=== PATIENT | female | born 1995 | race Caucasian/White ===

== ENCOUNTER 2016-12-23 12:00 | Emergency (ER) | payer SELFPAY ==
[~2016-12-23] VITALS: Ht 170.2 cm; Wt 91.0 kg
[2016-12-23 12:02] VITALS: BP 123/77; PULSE 82; RESP 16; TEMP 98; O2SAT 98
--- NOTE | 2016-12-23 12:31 | PD ---
HPI . chronic back pain/leg pain Chief Complaint: Back/ Neck Pain or Injury Time Seen by Provider: 12:31 Travel History International Travel<30 days: No Contact w/Intl Traveler<30days: No Traveled to known affect area: No History of Present Illness HPI 21-year-old female with history of bulging disc here with complaints of chronic back pain and left leg pain. Patient says she experience some numbness in her left leg started to come to the emergency department for further evaluation. 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 She thinks it may be contributing to her problems. She denies any bowel or bladder dysfunction. She denies any saddle anesthesia. She does not have any recent injury or trauma. She rates the pain as severe in the left lower extremity without any radiation. She has not seen her primary care provider for this issue. She is here in hopes of further workup. [facility] Past Medical History Medical History: Denies Significant Hx Tetanus Vaccination: < 5 Years Influenza Vaccination: No ?: Not LMP: 12/15/2016 : 0 Past Surgical History Other Surgery: Yes (tumor removed in chest at ) Social History Alcohol Use: Yes (WEEKLY) Tobacco Use: No Substance Use: No Allergies-Medications (Allergen,Severity, Reaction): Coded Allergies: No Known Allergies (Verified , 12/23/16) Reported Meds & Prescriptions Reported Meds & Active Scripts Active Prednisone 50 Mg Tab 50 Mg PO DAILY Review of Systems General / Constitutional: No: Fever Eyes: No: Visual changes HENT: No: Headaches Cardiovascular: No: Chest Pain or Discomfort Respiratory: No: Shortness of Breath Gastrointestinal: No: Abdominal Pain Genitourinary: No: Dysuria Musculoskeletal: Positive: Pain (left leg) Skin: No Rash Neurologic: No: Weakness Psychiatric: No: Depression Endocrine: No: Polydipsia Hematologic/Lymphatic: No: Easy Bruising Physical Exam Narrative GENERAL: AAO x 3, no acute distress, Well-nourished, well-developed patient. SKIN: Warm and dry. No visible rashes or bruising. HEAD: Normocephalic and atraumatic. EYES: No scleral icterus. No injection or drainage. EOM intact, PERRLA ENT: No nasal drainage noted. Mucous membranes pink. Airway patent. NECK: Supple, trachea midline. No JVD. CARDIOVASCULAR: Regular rate and rhythm without murmurs, gallops, or rubs. RESPIRATORY: Breath sounds equal bilaterally. No accessory muscle use. No rhonchi or rales. GASTROINTESTINAL: Abdomen soft, non-tender, nondistended. EXTREMITIES: No cyanosis or edema. mild positive straight leg raise on the left lower extremity.all joints full range of motion. Patient is ambulatory BACK: Nontender without obvious deformity. No CVA tenderness. PSYCH: AAO x 3, normal affect. Data Data Last Documented VS Vital Signs Date Time Temp Pulse Resp B/P Pulse Ox O2 Delivery O2 Flow Rate FiO2 12/23/16 12:02 98.0 82 16 123/77 98 MDM Medical Decision Making Medical Screen Exam Complete: Yes Emergency Medical Condition: Yes Medical Record Reviewed: Yes Differential Diagnosis lumbar radiculopathy, sciatica, acute on chronic pain Narrative Course 21-year-old female with history of bulging disc here with complaints of chronic back pain and left leg pain. Patient says she experience some numbness in her left leg started to come to the emergency department for further evaluation. 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 She thinks it may be contributing to her problems. She denies any bowel or bladder dysfunction. She denies any saddle anesthesia. She does not have any recent injury or trauma. She rates the pain as severe in the left lower extremity without any radiation. She has not seen her primary care provider for this issue. She is here in hopes of further workup. Patient seen and examined. She does have a hint of sciatica. She is ambulatory and all joints are moving. I do not suspect any acute fractures or cauda equina. I explained to her that these are chronic issues that require primary care follow-up. I recommend that she establish with primary care provider for further evaluation and imaging. I advised her that I can discharge her home with a short course of steroids that will help reduce inflammation. She agreed to follow-up with her primary care provider. Patient verbalized understanding of instructions, questions were answered, and thanked me for their care. I advised them if their condition worsens, please return to the nearest emergency room for further care. Diagnosis Primary Impression: Left leg pain Patient Instructions: General Instructions Additional Instructions: Please return to emergency department if your symptoms return or worsen. Follow up with your primary care provider. Take medications as prescribed. Med/Other Pt SpecificInfo: Prescription(s) given Scripts Prednisone 50 Mg Tab50 Mg PO DAILY #5 TAB Prov:Tk Cevallos MD 12/23/16 Disposition: 01 DISCHARGE HOME Condition: Stable Nesha Paez Dec 23, 2016 12:31
[2016-12-23] MEDS ORDERED: PRED50 PO (12:35)
== END 2016-12-23 12:53 | disposition home or self-care (01) ==
LOC: NEPK 12:00
DX: M79.605 Pain in left leg (principal); R20.0 Anesthesia of skin
CPT/HCPCS: 99283

== ENCOUNTER 2017-05-25 18:59 | Emergency (ER) | payer SELFPAY ==
[~2017-05-25 18:59] MED LIST: PRED50 PO
[2017-05-25 19:00] VITALS: BP 140/86; PULSE 118; RESP 24; TEMP 99; O2SAT 99
--- NOTE | 2017-05-25 19:43 | PD ---
HPI Chief Complaint: ENT Complaint Time Seen by Provider: 19:41 Travel History International Travel<30 days: No Contact w/Intl Traveler<30days: No Traveled to known affect area: No History of Present Illness HPI 21-year-old female with no significant medical history presents to the emergency department for evaluation of sore throat, acute onset this morning but worsening throughout the day. Patient reports subjective fever and chills. Difficulty swallowing. Denies any nausea or vomiting. She feels as though her throat is swollen but is able to breathe adequately. She denies any other symptoms at this time. [facility] Past Medical History Medical History: Denies Significant Hx Tetanus Vaccination: < 5 Years Influenza Vaccination: No ?: Not LMP: 05/06/17 : 0 Past Surgical History Surgical History: No Previous Surgery Other Surgery: Yes (tumor removed in chest at ) Social History Alcohol Use: Yes (WEEKLY) Tobacco Use: No Substance Use: No Allergies-Medications (Allergen,Severity, Reaction): Coded Allergies: No Known Allergies (Verified , 05/25/17) Reported Meds & Prescriptions Reported Meds & Active Scripts Active Prednisone 50 Mg Tab 50 Mg PO DAILY 5 Days Review of Systems Except as stated in HPI: all other systems reviewed are Neg Physical Exam Narrative GENERAL: Well-nourished female patient, ambulatory and in no acute distress SKIN: Focused skin assessment warm/dry. HEAD: Atraumatic. Normocephalic. EYES: Pupils equal and round. No scleral icterus. No injection or drainage. ENT: Mucosa pink and moist. Significant erythema of the posterior pharynx with scattered exudates. 2+ tonsillar edema.. No uvular edema. No uvular, palatal, or tonsillar deviation. Airway patent. Nasal turbinates appear normal without nasal blood, purulent drainage or septal hematoma. NECK: Trachea midline. No JVD. Anterior cervical lymphadenopathy. CARDIOVASCULAR: Elevated rate and rhythm. No murmur appreciated. RESPIRATORY: No accessory muscle use. Clear to auscultation. Breath sounds equal bilaterally. GASTROINTESTINAL: Abdomen soft, non-tender, nondistended. Hepatic and splenic margins not palpable. MUSCULOSKELETAL: No obvious deformities. No clubbing. No cyanosis. No edema. NEUROLOGICAL: Awake and alert. No obvious cranial nerve deficits. Motor grossly within normal limits. Normal speech. PSYCHIATRIC: Appropriate mood and affect; insight and judgment normal. Data Data Last Documented VS Vital Signs Date Time Temp Pulse Resp B/P (MAP) Pulse Ox O2 Delivery O2 Flow Rate FiO2 05/25/17 20:35 05/25/17 19:00 99.0 118 24 99 Room Air Orders Orders Ketorolac Inj (Toradol Inj) (05/25/17 19:45) Acetaminophen (Tylenol) (05/25/17 19:45) Group A Rapid Strep Screen (05/25/17 19:42) Strep Culture (Group A) (05/25/17 20:00) MDM Medical Decision Making Medical Screen Exam Complete: Yes Emergency Medical Condition: Yes Medical Record Reviewed: Yes Differential Diagnosis Strep pharyngitis versus mono versus viral pharyngitis versus tonsillitis Narrative Course 21-year-old female presents to the emergency department for evaluation of sore throat. Patient has elevated heart rate low-grade temperature here in the emergency department. She has a significant erythema, edema, neck states of the pharynx with associated lymphadenopathy. Rapid strep screen is ordered. Patient is given Toradol and Tylenol. Reexamination of her heart rate is 102 bpm. Rapid strep screen results are negative. , Patient will be discharged home with a prescription for oral steroids to help with the inflammation of her pharynx and tonsils. She is counseled on care and [id number] remedies. She is encouraged to follow-up with primary care provider and return immediately with any acute worsening symptoms. Diagnosis Primary Impression: Tonsillitis Additional Impression: Pharyngitis Qualified Codes: J02.9 - Acute pharyngitis, unspecified Referrals: Primary Care Physician Patient Instructions: General Instructions, Tonsillitis (DC) Additional Instructions: Warm salt water gargles may help to alleviate symptoms Tylenol and/or ibuprofen as structural package as needed for fever and/or pain Avoid abrasive and acidic foods Follow-up with a primary care provider Return immediately with any acute worsening of symptoms. Med/Other Pt SpecificInfo: Prescription(s) given Scripts Prednisone (Prednisone) 50 Mg Tab 50 MG PO DAILY for 5 Days, TAB 0 Refills Prov: Tania Sifuentes 05/25/17 Disposition: 01 DISCHARGE HOME Condition: Stable Tania Sifuentes May 25, 2017 19:43
[2017-05-25] MEDS ORDERED: ACETAMINOPHEN 500 MG CPLT PO ONE (19:45)
[2017-05-25] MEDS ORDERED: KETOROLAC TROMETHAMINE 60 MG/2 ML (IM) VIAL IM ONE (19:45)
[2017-05-25] MEDS ORDERED: PRED50 PO (20:35)
== END 2017-05-25 20:45 | disposition home or self-care (01) ==
LOC: NEPK 18:59
DX: J03.90 Acute tonsillitis, unspecified (principal); J02.9 Acute pharyngitis, unspecified; R59.1 Generalized enlarged lymph nodes
CPT/HCPCS: 87081; 87880; 96372; 99283; J1885